=== PATIENT | male | born 1980 | race Caucasian/White ===

== ENCOUNTER 2022-06-28 12:06 | Inpatient (IN) | payer OTHER ==
[~2022-06-28] VITALS: Ht 175.3 cm; Wt 84.4 kg
[2022-06-28] MEDS: DOCUSATE SODIUM 100 MG CAPSULE PO SCH ×2 (13:45→20:11)
[2022-06-28] MEDS ORDERED: CELECOXIB 200 MG CAPSULE PO PRN (13:45)
[2022-06-28 15:40] VITALS: BP 125/77
[2022-06-28 20:12] VITALS: BP 121/69
[2022-06-28] MEDS: SENNOSIDES 8.6 MG TABLET PO SCH (20:12)
[2022-06-29] MEDS: DOCUSATE SODIUM 100 MG CAPSULE PO SCH ×2 (08:06→21:00)
[2022-06-29] MEDS: ENOXAPARIN SODIUM 40 MG/0.4 ML PF SYRINGE SQ SCH (08:06)
[2022-06-29] MEDS: ETHYL ALCOHOL 62% ANTISEPTIC NASAL SANITIZER 0.6 ML AMPUL NASAL SCH ×2 (08:06→22:10)
[2022-06-29 08:21] VITALS: BP 126/78
[2022-06-29 20:20] VITALS: BP 137/79
[2022-06-29] MEDS: SENNOSIDES 8.6 MG TABLET PO SCH (21:00)
[2022-06-30] MEDS: ETHYL ALCOHOL 62% ANTISEPTIC NASAL SANITIZER 0.6 ML AMPUL NASAL SCH ×2 (08:37→20:15)
[2022-06-30] MEDS: ENOXAPARIN SODIUM 40 MG/0.4 ML PF SYRINGE SQ SCH (08:37)
[2022-06-30] MEDS: DOCUSATE SODIUM 100 MG CAPSULE PO SCH ×2 (08:38→20:23)
[2022-06-30 09:05] VITALS: BP 129/84
[2022-06-30] MEDS: ACETAMINOPHEN 325 MG TABLET PO PRN ×2 (13:31→20:15)
[2022-06-30 19:31] VITALS: BP 127/85
[2022-06-30] MEDS: SENNOSIDES 8.6 MG TABLET PO SCH (20:23)
[2022-06-30] MEDS: MELATONIN 5 MG TABLET PO PRN (20:24)
[2022-07-01] MEDS: ENOXAPARIN SODIUM 40 MG/0.4 ML PF SYRINGE SQ SCH (08:35)
[2022-07-01] MEDS: ETHYL ALCOHOL 62% ANTISEPTIC NASAL SANITIZER 0.6 ML AMPUL NASAL SCH ×2 (08:35→21:15)
[2022-07-01] MEDS: DOCUSATE SODIUM 100 MG CAPSULE PO SCH ×2 (08:38→21:00)
[2022-07-01 09:49] VITALS: BP 120/73
[2022-07-01 20:11] VITALS: BP 143/74
[2022-07-01] MEDS: SENNOSIDES 8.6 MG TABLET PO SCH (21:00)
[2022-07-01] MEDS: ACETAMINOPHEN 325 MG TABLET PO PRN (21:11)
[2022-07-01] MEDS: MELATONIN 5 MG TABLET PO PRN (21:15)
[2022-07-02] MEDS: ENOXAPARIN SODIUM 40 MG/0.4 ML PF SYRINGE SQ SCH (08:40)
[2022-07-02] MEDS: ETHYL ALCOHOL 62% ANTISEPTIC NASAL SANITIZER 0.6 ML AMPUL NASAL SCH ×2 (08:40→21:36)
[2022-07-02] MEDS: DOCUSATE SODIUM 100 MG CAPSULE PO SCH ×3 (08:40→21:39)
[2022-07-02 09:25] VITALS: BP 133/81
[2022-07-02 20:03] VITALS: BP 124/65
[2022-07-02] MEDS: SENNOSIDES 8.6 MG TABLET PO SCH (21:00)
[2022-07-02] MEDS: ACETAMINOPHEN 325 MG TABLET PO PRN (21:36)
[2022-07-02] MEDS: MELATONIN 5 MG TABLET PO PRN (21:49)
[2022-07-03 09:02] VITALS: BP 113/72
[2022-07-03] MEDS: ENOXAPARIN SODIUM 40 MG/0.4 ML PF SYRINGE SQ SCH (09:16)
[2022-07-03] MEDS: ETHYL ALCOHOL 62% ANTISEPTIC NASAL SANITIZER 0.6 ML AMPUL NASAL SCH ×2 (09:16→20:28)
[2022-07-03] MEDS: MULTIVITAMINS, THERAPEUTIC TABLET PO SCH (09:17)
[2022-07-03] MEDS: DOCUSATE SODIUM 100 MG CAPSULE PO SCH ×2 (09:31→20:41)
[2022-07-03 20:00] VITALS: BP 127/88
[2022-07-03] MEDS: MELATONIN 5 MG TABLET PO PRN (20:28)
[2022-07-03] MEDS: ACETAMINOPHEN 325 MG TABLET PO PRN (20:28)
[2022-07-03] MEDS: SENNOSIDES 8.6 MG TABLET PO SCH (20:39)
[2022-07-04 08:00] VITALS: BP 125/75
[2022-07-04] MEDS: DOCUSATE SODIUM 100 MG CAPSULE PO SCH ×2 (08:33→21:29)
[2022-07-04] MEDS: MULTIVITAMINS, THERAPEUTIC TABLET PO SCH (08:33)
[2022-07-04] MEDS: ENOXAPARIN SODIUM 40 MG/0.4 ML PF SYRINGE SQ SCH (08:33)
[2022-07-04] MEDS: ETHYL ALCOHOL 62% ANTISEPTIC NASAL SANITIZER 0.6 ML AMPUL NASAL SCH ×2 (08:34→21:28)
[2022-07-04 21:00] VITALS: BP 120/79
[2022-07-04] MEDS: SENNOSIDES 8.6 MG TABLET PO SCH ×2 (21:00→21:29)
[2022-07-04] MEDS: MELATONIN 5 MG TABLET PO PRN (21:32)
[2022-07-04] MEDS: ACETAMINOPHEN 325 MG TABLET PO PRN (21:36)
[2022-07-05] MEDS ORDERED: SENN-187 PO (00:08)
[2022-07-05] MEDS ORDERED: MULT1TAB28 PO (00:08)
[2022-07-05] MEDS ORDERED: DOCU-385 PO ×2 (00:10→11:20)
[2022-07-05] MEDS ORDERED: ENOX40SY14 SQ (00:17)
[2022-07-05] MEDS ORDERED: MELA1TAB17 PO (00:17)
[2022-07-05] MEDS ORDERED: CELE200 PO ×2 (00:17→11:20)
[2022-07-05] MEDS: DOCUSATE SODIUM 100 MG CAPSULE PO SCH (08:58)
[2022-07-05] MEDS: ENOXAPARIN SODIUM 40 MG/0.4 ML PF SYRINGE SQ SCH (08:58)
[2022-07-05] MEDS: ETHYL ALCOHOL 62% ANTISEPTIC NASAL SANITIZER 0.6 ML AMPUL NASAL SCH (08:58)
[2022-07-05] MEDS: MULTIVITAMINS, THERAPEUTIC TABLET PO SCH (08:58)
[2022-07-05 09:04] VITALS: BP 112/79
[2022-07-05] MEDS ORDERED: ACET325T51 PO (11:20)
[2022-07-05] MEDS ORDERED: Multivitamins/Therapeutic PO (11:20)
[2022-07-05] MEDS ORDERED: ASPI325T87 PO (11:20)
== END 2022-07-05 14:53 | disposition home or self-care (01) | DRG 563 ==
LOC: 2WR 13:00
PROVIDERS: ADMIT Physical Medicine & Rehabilitation; ATTEND Physical Medicine & Rehabilitation
DX: S82.892A Other fracture of left lower leg, initial encounter for closed fracture (principal); S32.89XA Fracture of other parts of pelvis, initial encounter for closed fracture; S86.012A Strain of left Achilles tendon, initial encounter; S86.011A Strain of right Achilles tendon, initial encounter; S82.891A Other fracture of right lower leg, initial encounter for closed fracture; L89.629 Pressure ulcer of left heel, unspecified stage; L89.619 Pressure ulcer of right heel, unspecified stage; S62.604A Fracture of unspecified phalanx of right ring finger, initial encounter for closed fracture; K59.00 Constipation, unspecified; V89.2XXA Person injured in unspecified motor-vehicle accident, traffic, initial encounter; Y93.89 Activity, other specified; Y92.89 Other specified places as the place of occurrence of the external cause; Y99.8 Other external cause status; Z91.018 Allergy to other foods; Z80.3 Family history of malignant neoplasm of breast; Z79.899 Other long term (current) drug therapy
CPT/HCPCS: 87081; 93970; 97110; 97112; 97140; 97162; 97165; 97530; 97535; 99366; J1650; Q9967